=== PATIENT | female | born 1960 | race Caucasian/White ===

== ENCOUNTER 2023-04-16 14:47 | Outpatient (OUT) | payer BC, SELFPAY ==
--- NOTE | 2023-04-16 | XR_ITS ---
The [address] [address] Patient Name: MARANDA PENN MRN: [id number] date: 1960 Sex: F Assigned Patient Location: [facility] Current Patient Location: Accession/Order Number: [id number] Exam Date: 04/16/2023 13:20 Report Date: 04/17/2023 08:03 At the request of: VERONICA VILLAFUERTE Procedure: XR foot LT min 3V PROCEDURE: XR foot LT min 3V HISTORY: LEFT FOOT PAIN COMPARISON: XR foot bilateral 01/02/2022 FINDINGS: BONES:Prior osteotomy and repair of posterior calcaneus. Osteotomy and bone staple repair of proximal first metatarsal. Chronic collapse of plantar arch. SOFT TISSUES:No visible soft tissue swelling. EFFUSION:None visible. OTHER: Negative. XR/XR foot LT min 3V IMPRESSION: 1. Stable surgical changes, pes planus, and mild to moderate degenerative joint disease. Electronically authenticated by: AMOL PADILLA Date: 04/17/2023 08:03
== END 2023-04-16 14:48 | disposition home or self-care (01) ==
LOC: RAD 14:48
PROVIDERS: Visit Provider Podiatrist Foot & Ankle Surgery
DX: M79.672 Pain in left foot (principal); M21.42 Flat foot [pes planus] (acquired), left foot
CPT/HCPCS: 73630